=== PATIENT | male | born 1980 | race Caucasian/White ===

== ENCOUNTER 2017-09-26 00:59 | Emergency (ER) | payer OTHER ==
[~2017-09-26] VITALS: Ht 188 cm; Wt 86.2 kg
[~2017-09-26 00:59] MED LIST: COZAAR 50 MG TA50 M1 PO; NORCO 5-325 TA1 EAC1 PO; OMEPRAZOLE40 MG PO; SERTRALINE HCL50 MG PO; SIMCOR 500-401 EACH PO; TRAZODONE HCL50 MG PO
[2017-09-26] MEDS ORDERED: CLARITIN10 M3 (01:04)
[2017-09-26 01:40] LABS: ABSOLUTE BASOPHILS 0.1 thou/uL (0.0-0.2); ABSOLUTE EOSINOPHILS 0.1 thou/uL (0.0-0.7); ABSOLUTE LYMPHOCYTES 2.1 thou/uL (0.8-5.3); ABSOLUTE MONOCYTES 0.6 thou/uL (0.0-1.2); ABSOLUTE NEUTROPHILS 4.6 thou/uL (1.6-8.1); BASOPHILS 0.8 %; HEMATOCRIT 44.8 % (42.0-52.0); HEMOGLOBIN 14.9 gm/dL (14.0-18.0); LYMPHOCYTES 28.6 %; MCH 29.8 pg (26.0-34.0); MCHC 33.4 g/dL (28.0-37.0); MCV 89.3 fL (80.0-100.0); MONOCYTES 7.5 %; MPV 7.2 fl. (7.2-11.1); NUCLEATED RBCS 0 /100WBC; PLATELET COUNT* 284 thou/uL (150-400); POLYS 61.1 %; RBC 5.01 mil/uL (4.50-6.00); WBC 7.4 thou/uL (4.0-11.0)
[2017-09-26 01:46] LABS: URINE BILIRUBIN NEGATIVE (Negative); URINE BLOOD NEGATIVE (Negative); URINE CLARITY CLEAR; URINE COLOR STRAW; URINE GLUCOSE-RANDOM NEGATIVE (Negative); URINE KETONES NEGATIVE (Negative); URINE LEUKOCYTES-REFLEX 1+ (Negative); URINE NITRITE-REFLEX NEGATIVE (Negative); URINE PROTEIN NEGATIVE (Negative); URINE SPECIFIC GRAVITY <= 1.005 (1.005-1.030); URINE UROBILINOGEN 0.2 E.U./dl (0.2-1.0)
[2017-09-26 01:51] LABS: ANION GAP 4 mmol/L (7-16); BUN 10 mg/dL (7-18); CALCIUM 8.5 mg/dL (8.5-10.1); CHLORIDE 103 mmol/L (98-107); CO2 33 mmol/L (21-32); CREATININE 0.9 mg/dL (0.6-1.3); GLUCOSE 77 mg/dL (70-99); POTASSIUM 4.3 mmol/L (3.5-5.1); SODIUM 140 mmol/L (136-145)
[2017-09-26 01:56] LABS: AMP/METHAMP Negative (Negative); BARBITURATES Negative (Negative); BENZODIAZEPINES Negative (Negative); COCAINE Negative (Negative); METHADONE Negative (Negative); OPIATES Negative (Negative); PCP Negative (Negative); THC Negative (Negative)
[2017-09-26 01:57] LABS: BACTERIA-REFLEX 1-9 Few /HPF (None Seen); CASTS None Seen /LPF (None Seen); CRYSTALS None Seen /LPF (None Seen); MUCUS 0-3 Light strn/LPF (None Seen); SQUAMOUS 0-3 Few /LPF (0-3); URINE RBC None Seen /HPF (0-2); URINE WBC-REFLEX 6-15 Few /HPF (0-5)
[2017-09-26 01:58] LABS: ALBUMIN 3.7 g/dL (3.4-5.0); ALKALINE PHOSPHATASE 77 U/L (46-116); SGOT 13 U/L (15-37); SGPT 23 U/L (30-65); TOTAL BILIRUBIN 0.3 mg/dL (<0.1-1.0); TOTAL PROTEIN 6.9 g/dL (6.4-8.2); TROPONIN-I LEVEL <0.06 ng/mL (<0.06)
[2017-09-26 02:41] VITALS: BP 140/101
--- NOTE | 2017-09-26 12:28 | EKG ---
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 : 1980 Requested By: Delicia Bartlett Order Number: [id number] Reading MD: Luis Jain Measurements Intervals [place] Rate: 82 P: 0 [place]: 60 QRS: 20 QRSD: 87 T: 55 QT: 371 QTc: 434 Interpretive Statements Sinus rhythm Short [place] interval Abnormal R-wave progression, early transition Abnormal inferior Q waves Compared to ECG 03/28/2015 18:28:09 no change Electronically Signed On 09-26-2017 12:28:15 [employer] by Luis Jain [email or web address] <ELECTRONICALLY SIGNED> By: Luis Jain MD, [facility] 09/26/17 1228 010 010 Luis Jain MD, FACC /EPI
== END 2017-09-26 02:42 | disposition home or self-care (01) ==
LOC: M.ERS 00:59
PROVIDERS: Emergency Medicine
DX: R07.89 Other chest pain (principal); Z88.8 Allergy status to other drugs, medicaments and biological substances

== ENCOUNTER 2020-04-07 03:04 | Emergency (ER) | payer OTHER ==
[~2020-04-07] VITALS: Ht 188 cm; Wt 106.6 kg
[~2020-04-07 03:04] MED LIST changes: +CLARITIN10 M3
[2020-04-07 03:30] LABS: URINE BILIRUBIN NEGATIVE (Negative); URINE BLOOD NEGATIVE (Negative); URINE CLARITY CLEAR; URINE COLOR YELLOW; URINE GLUCOSE-RANDOM NEGATIVE (Negative); URINE KETONES NEGATIVE (Negative); URINE LEUKOCYTES-REFLEX NEGATIVE (Negative); URINE NITRITE-REFLEX NEGATIVE (Negative); URINE PROTEIN NEGATIVE (Negative); URINE UROBILINOGEN 0.2 E.U./dl (0.2-1.0)
[2020-04-07 03:31] LABS: MCHC 34.2 g/dL (28.0-37.0); NUCLEATED RBCS 0 /100WBC
[2020-04-07 03:33] LABS: ABSOLUTE BASOPHILS 0.1 thou/uL (0.0-0.2); ABSOLUTE LYMPHOCYTES 2.6 thou/uL (0.8-5.3); ABSOLUTE MONOCYTES 0.9 thou/uL (0.0-1.2); ABSOLUTE NEUTROPHILS 8.7 thou/uL (1.6-8.1); BASOPHILS 0.7 %; EOSINOPHILS 0.3 %; HEMATOCRIT 45.3 % (42.0-52.0); HEMOGLOBIN 15.5 gm/dL (14.0-18.0); LYMPHOCYTES 20.9 %; MCH 30.4 pg (26.0-34.0); MCV 88.8 fL (80.0-100.0); MONOCYTES 7.5 %; MPV 8.1 fl. (7.2-11.1); PLATELET COUNT* 364 thou/uL (150-400); POLYS 70.6 %; RDW-CV 13.1 % (10.5-14.5); WBC 12.4 thou/uL (4.0-11.0)
[2020-04-07 03:50] LABS: CALCIUM 8.5 mg/dL (8.5-10.1); CREATININE 0.8 mg/dL (0.6-1.3); POTASSIUM 4.2 mmol/L (3.5-5.1)
[2020-04-07 03:56] LABS: ALBUMIN 3.9 g/dL (3.4-5.0); TOTAL BILIRUBIN 0.3 mg/dL (<0.1-1.0); TOTAL PROTEIN 7.4 g/dL (6.4-8.2)
[2020-04-07] MEDS ORDERED: ZOFRAN ODT4 MG SUBLING (05:59)
[2020-04-07] MEDS ORDERED: NORCO 5-325 TA1 EAC2 PO (05:59)
[2020-04-07] MEDS ORDERED: BENTYL 20 MG TA20 M1 PO (05:59)
[2020-04-07 06:36] VITALS: BP 145/106
--- NOTE | 2020-04-07 14:17 | EKG ---
[place] [address] ELECTROCARDIOGRAM REPORT Name: RAFAEL RAMOS Room: 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
== END 2020-04-07 06:36 | disposition home or self-care (01) ==
LOC: M.ERS 03:04
PROVIDERS: Family Medicine
DX: R10.84 Generalized abdominal pain (principal); F41.9 Anxiety disorder, unspecified; F90.9 Attention-deficit hyperactivity disorder, unspecified type; Z91.018 Allergy to other foods